=== PATIENT | male | born 1980 | race African-American/Black ===

== ENCOUNTER 2020-12-09 23:06 | Emergency (ER) | payer OTHER ==
[~2020-12-09] VITALS: Ht 177.8 cm; Wt 115.7 kg
[2020-12-09 23:13] VITALS: BP 131/81
[2020-12-09] MEDS ORDERED: ZOLOFT50 M1 PO (23:20)
[2020-12-09] MEDS ORDERED: AMOXICILLIN875 MG PO (23:40)
[2020-12-09] MEDS ORDERED: CORTISPORIN OTI10 M2 OTIC (23:40)
[2020-12-10] MEDS ORDERED: BUSPIRONE HCL5 MG PO (00:36)
[2020-12-10] MEDS ORDERED: LEXAPRO 10 MG T10 M1 PO (00:36)
== END 2020-12-09 23:30 | disposition home or self-care (01) ==
LOC: ER 23:06
DX: H66.92 Otitis media, unspecified, left ear (principal); Z20.822 Contact with and (suspected) exposure to COVID-19; H60.92 Unspecified otitis externa, left ear; Z79.899 Other long term (current) drug therapy; Z91.041 Radiographic dye allergy status